=== PATIENT | male | born 1985 ===

== ENCOUNTER 2018-08-08 11:40 | Emergency (ER) | payer MEDICAID ==
[2018-08-08 13:54] LABS: BASO % 0.5 % (0.0-2.0); EOS % 0.6 % (0.0-4.0); HEMOGLOBIN 15.2 g/dL (12.0-18.0); LYMPH # 1.8 K/uL (1.0-4.3); LYMPH % 27.2 % (20.0-40.0); MEAN CORPUSCULAR HEMOGLOBIN 31.6 pg (27.0-31.0); MEAN CORPUSCULAR HGB CONC 33.6 g/dL (33.0-37.0); MEAN PLATELET VOLUME 7.4 fl (7.2-11.7); MONO # 0.5 K/uL (0.0-0.8); MONO % 7.1 % (0.0-10.0); NEUT # 4.3 K/uL (1.8-7.0); NEUT % 64.6 % (50.0-75.0); NRBC % 0.1 % (0.0-0.0); RBC 4.81 Mil/uL (4.40-5.90); RED CELL DISTRIBUTION WIDTH 13.4 % (11.5-14.5); WHITE BLOOD COUNT 6.7 K/uL (4.8-10.8)
[2018-08-08 14:07] LABS: ALB/GLOB RATIO 1.5 (1.0-2.1); ALBUMIN 4.5 g/dL (3.5-5.0); ALT/SGPT 39 U/L (21-72); AST/SGOT 24 U/L (17-59); BLOOD UREA NITROGEN 19 mg/dl (9-20); CALCIUM 9.6 mg/dL (8.4-10.2); GFR NON-AFRICAN AMERICAN > 60
--- NOTE | 2018-08-08 14:39 | ED PDOC ---
HPI: Psych/Substance Abuse Time Seen by Provider: 08/08/18 11:55 Chief Complaint (Nursing): Psychiatric Evaluation Chief Complaint (Provider): Psychiatric Evaluation History Per: Patient History/Exam Limitations: no limitations Onset/Duration Of Symptoms: Days Current Symptoms Are (Timing): Still Present Associated Symptoms: denies: Suicidal Thoughts Additional Complaint(s): 33 year old male with no past medical history who is presenting the ED psychiatric evaluation. Patient states that he felt like he wanted to hurt someone but denies any suicidal ideation at this time. He also denies any hallucinations, chest pain, or headaches. PMD: none provided Past Medical History Reviewed: Historical Data, Nursing Documentation, Vital Signs Vital Signs: Last Vital Signs Temp 98.3 F 08/08/18 11:52 Pulse 92 H 08/08/18 11:52 Resp 16 08/08/18 11:52 BP 129/80 08/08/18 11:52 Pulse Ox 98 08/08/18 11:52 - Medical History PMH: No Chronic Diseases Denies: Diabetes, Hepatitis, HIV, HTN, Seizures, Sexually Transmitted Disease - Surgical History Surgical History: No Surg Hx - Family History Family History: States: Unknown Family Hx - Social History Current smoker - smoking cessation education provided: Yes Alcohol: Occasional Drugs: Cannabis - Allergies Allergies/Adverse Reactions: Allergies Allergy/AdvReac Type Severity Reaction Status Date / Time No Known Allergies Allergy Verified 08/08/18 11:48 Review of Systems ROS Statement: Except As Marked, All Systems Reviewed And Found Negative Cardiovascular: Negative for: Chest Pain Neurological: Negative for: Headache Psych: Positive for: Other (thoughts of harming people ). Negative for: Suici joseph ideation Physical Exam - Reviewed Nursing Documentation Reviewed: Yes Vital Signs Reviewed: Yes - Physical Exam Appears: Positive for: Non-toxic, No Acute Distress Head Exam: Positive for: ATRAUMATIC, NORMAL INSPECTION, NORMOCEPHALIC Skin: Positive for: Normal Color, Warm, DRY Eye Exam: Positive for: EOMI, Normal appearance, PERRL ENT: Positive for: Normal ENT Inspection Neck: Positive for: Normal, Painless ROM, Supple Cardiovascular/Chest: Positive for: Regular Rate, Rhythm. Negative for: Murmur Respiratory: Positive for: Normal Breath Sounds. Negative for: Respiratory Distress Gastrointestinal/Abdominal: Positive for: Normal Exam, Soft. Negative for: Te nderness Extremity: Positive for: Normal ROM. Negative for: Deformity, Swelling Neurological/Psych: Positive for: Awake, Alert, Oriented. Negative for: Motor/Sensory Deficits - Laboratory Results Result Diagrams: 08/08/18 13:40 08/08/18 13:40 Lab Results: Total Bilirubin 0.3 mg/dl (0.2-1.3) 08/08/18 13:40 AST 24 U/L (17-59) 08/08/18 13:40 ALT 39 U/L (21-72) 08/08/18 13:40 Alkaline Phosphatase 60 U/L (38-126) 08/08/18 13:40 Total Protein 7.6 G/DL (6.3-8.2) 08/08/18 13:40 Albumin 4.5 g/dL (3.5-5.0) 08/08/18 13:40 Globulin 3.1 gm/dL (2.2-3.9) 08/08/18 13:40 Albumin/Globulin Ratio 1.5 (1.0-2.1) 08/08/18 13:40 - ECG Interpretation Of ECG: NSR @ 69, no ST-T changes. O2 Sat by Pulse Oximetry: 98 (RA) Pulse Ox Interpretation: Normal Medical Decision Making Medical Decision Making: Time: 13:40 Plan: --EKG --Alcohol Serum --CMP --Drug Screen --ED Urine Dipstick --CBC --Chest x-ray --Ativan 2 mg IM --Haldol 5 mg IM --1:1 Observation --Urinalysis As per long term care social worker, patient upset at his ana maria mother because of accusations she was making against him. Patient will be evaluated by [facility] [place]. Accession No. : [id number] Patient Name / ID : CESAR CAMPBELL / [id number] Exam Date : 08/08/2018 12:46:14 ( Approved ) Study Comment : Sex / Age : M / 33Y Creator : Eriberto Del Rio MD Dictator : Eriberto Del Rio MD Spool Sander : [employer] Director : Eriberto Del Rio MD Approver2 : Report Date : 08/08/2018 15:13:37 My Comment : Date of service: 08/08/2018 HISTORY: Medical clearance COMPARISON: No prior. FINDINGS: LUNGS: No active pulmonary disease. PLEURA: No significant pleural effusion identified, no pneumothorax apparent. CARDIOVASCULAR: No atherosclerotic calcification present Normal. OSSEOUS STRUCTURES: No significant abnormalities. VISUALIZED UPPER ABDOMEN: Normal. OTHER FINDINGS: None. IMPRESSION: No active disease. MEDICAL CLEARANCE: Pt medically cleared for psychiatric evaluation. Scribe Attestation: Documented by Amairani Bryan, acting as a scribe for Kait Sims MD. Provider Scribe Attestation: All medical record entries made by the Scribe were at my direction and personally dictated by me. I have reviewed the chart and agree that the record accurately reflects my personal performance of the history, physical exam, medic al decision making, and the department course for this patient. I have also personally directed, reviewed, and agree with the discharge instructions and disposition. Disposition - Clinical Impression Clinical Impression: Homicidal ideation - Disposition Disposition: Transfer of Care Disposition Time: 19:00 Condition: STABLE Forms: [employer] (Burkinan) Patient Signed Over To: Eulogio Martin Handoff Comments: Pending [facility] [place].
[2018-08-08 15:11] LABS: URINE BACTERIA OCC (<OCC); URINE BILIRUBIN NEGATIVE (NEGATIVE); URINE BLOOD NEGATIVE (NEGATIVE); URINE CLARITY CLEAR (Clear); URINE COLOR YELLOW (YELLOW); URINE GLUCOSE (UA) NEG (NEGATIVE); URINE LEUKOCYTE ESTERASE NEG Leu/uL (Negative); URINE PROTEIN 30 mg/dL (NEGATIVE); URINE UROBILINOGEN 0.2-1.0 mg/dL (0.2-1.0)
--- NOTE | 2018-08-08 15:17 | RAD ---
Date of service: 08/08/2018 HISTORY: Medical clearance COMPARISON: No prior. FINDINGS: LUNGS: No active pulmonary disease. PLEURA: No significant pleural effusion identified, no pneumothorax apparent. CARDIOVASCULAR: No atherosclerotic calcification present Normal. OSSEOUS STRUCTURES: No significant abnormalities. VISUALIZED UPPER ABDOMEN: Normal. OTHER FINDINGS: None. IMPRESSION: No active disease.
[2018-08-08 15:29] LABS: BARBITURATES, UR NEGATIVE (NEGATIVE); BENZODIAZEPINES, UR NEGATIVE (NEGATIVE); OPIATES, UR NEGATIVE (NEGATIVE); PHENCYCLIDINE, UR NEGATIVE (NEGATIVE)
--- NOTE | 2018-08-08 19:12 | CARD ---
APPROVED REPORT Date of service: 08/08/2018 EKG Measurement Heart [id number] <Conclusion> Normal sinus rhythm Normal ECG
--- NOTE | 2018-08-08 19:17 | ED PDOC ---
- Laboratory Results Result Diagrams: 08/08/18 13:40 08/08/18 13:40 Lab Results: Total Bilirubin 0.3 mg/dl (0.2-1.3) 08/08/18 13:40 AST 24 U/L (17-59) 08/08/18 13:40 ALT 39 U/L (21-72) 08/08/18 13:40 Alkaline Phosphatase 60 U/L (38-126) 08/08/18 13:40 Total Protein 7.6 G/DL (6.3-8.2) 08/08/18 13:40 Albumin 4.5 g/dL (3.5-5.0) 08/08/18 13:40 Globulin 3.1 gm/dL (2.2-3.9) 08/08/18 13:40 Albumin/Globulin Ratio 1.5 (1.0-2.1) 08/08/18 13:40 Urine Color Yellow (YELLOW) 08/08/18 14:59 Urine Clarity Clear (Clear) 08/08/18 14:59 Urine pH 6.0 (5.0-8.0) 08/08/18 14:59 Ur Specific [place] 1.025 (1.003-1.030) 08/08/18 14:59 Urine Protein 30 mg/dL (NEGATIVE) 08/08/18 14:59 Urine Glucose (UA) Neg mg/dL (NEGATIVE) 08/08/18 14:59 Urine Ketones Negative mg/dL (NEGATIVE) 08/08/18 14:59 Urine Blood Negative (NEGATIVE) 08/08/18 14:59 Urine Nitrate Negative (NEGATIVE) 08/08/18 14:59 Urine Bilirubin Negative (NEGATIVE) 08/08/18 14:59 Urine Urobilinogen 0.2-1.0 mg/dL (0.2-1.0) 08/08/18 14:59 Ur Leukocyte Esterase Neg Jony/uL (Negative) 08/08/18 14:59 Urine RBC (Auto) 2 /hpf (0-3) 08/08/18 14:59 Urine Microscopic WBC 1 /hpf (0-5) 08/08/18 14:59 Urine Bacteria Occ (<OCC) H 08/08/18 14:59 - ECG O2 Sat by Pulse Oximetry: 98 (RA) Pulse Ox Interpretation: Normal Medical Decision Making Medical Decision Making: Time: 1900 -- Patient endorsed to me by Dr. Sims, pending [facility] [place] 04:50 Patient was evaluated by [facility] [place] and cleared for discharge. Diagnosis is adjustment disorder. Scribe Attestation: Documented by Miguel Yousif, acting as a scribe Cayla Martin MD. Provider Scribe Attestation: All medical record entries made by the Scribe were at my direction and personally dictated by me. I have reviewed the chart and agree that the record accurately reflects my personal performance of the history, physical exam, me dical decision making, and the department course for this patient. I have also personally directed, reviewed, and agree with the discharge instructions and disposition. Disposition - Clinical Impression Clinical Impression: Adjustment disorder - POA Present On Arrival: None - Disposition Disposition: Routine/Home Disposition Time: 04:50 Condition: STABLE Additional Instructions: ADRIAN GUERRERO, thank you for letting us take care of you today. Your provider was Eulogio Martin MD and you were treated for POSS DEPRESSION. The emergency medical care you received today was directed at your acute symptoms. If you were prescribed any medication, please fill it and take as directed. It may take several days for your symptoms to resolve. Return to the Emergency Department if your symptoms worsen, do not improve, or if you have any other problems. Please contact your doctor or call one of the physicians/clinics you have been referred to that are listed on the Patient Visit Information form that is included in your discharge packet. Bring any paperwork you were given at discharge with you along with any medications you are taking to your follow up visit. Our treatment cannot replace ongoing medical care by a primary care provider outside of the emergency department. Thank you for allowing the [facility] beds at the [facility] team to be part of your care today. If you had an X-Ray or CT scan: A Radiologist will review the ED reading if any change in treatment is needed we will contact you. If you had a blood, urine, or wound culture: It will take several days for the results, if any change in treatment is needed we will contact you. If you had an STI test: It will take 48 hours for the results. Please call after 1 week if you have not heard back. Instructions: Adjustment Disorder Forms: [employer] (Kazakh)
[2018-08-08 20:53] VITALS: TEMP 98.4
[2018-08-09 05:39] VITALS: BP 121/72; PULSE 68; RESP 16
[2018-08-10 04:55] VITALS: O2SAT 98
== END 2018-08-09 04:55 | disposition home or self-care (01) ==
LOC: H.ER 11:40
DX: F43.20 Adjustment disorder, unspecified (principal)